=== PATIENT | female | born 1970 | race Caucasian/White ===

== ENCOUNTER 2018-10-26 07:52 | Day surgery (SDC) | payer BC ==
[2018-10-22 14:45] VITALS: BMI 30.7
[2018-10-26 08:12] VITALS: RESP 16; TEMP 97.7
[2018-10-26] MEDS ORDERED: SODIUM CHLORIDE 0.9% 500 ML 500 ML IV ONE (08:16)
[2018-10-26] MEDS: BENZOCAINE SPRAY 1 CAN MUCOUS MEM ONE ×3 (09:42→10:24)
[2018-10-26] MEDS ORDERED: fentaNYL (PF) 50 MCG/ML 2 ML AMP IV ONE (10:24)
[2018-10-26] MEDS ORDERED: MIDAZOLAM (PF) 2 MG/2 ML VIAL IVP ONE ×2 (10:24→10:26)
[2018-10-26 11:50] VITALS: BP 136/80; PULSE 92
--- NOTE | 2018-10-26 12:22 | ECHOT ---
TRANSESOPHAGEAL ECHOCARDIOGRAM INDICATION: Ventricular septal defect. PROCEDURE NOTE: After obtaining informed consent, transesophageal echocardiogram was performed in left lateral position using an Omniplane probe. There was significant artifact throughout the study, which makes it a technically suboptimal study. The patient tolerated the procedure well without any obvious immediate complications. Patient received moderate conscious sedation. Total sedation time was 10 minutes. FINDINGS: 1. We did not find any evidence of ventricular septal defect. There is no evidence of color flow across the septum. 2. Aortic valve is a 3-leaflet valve appears calcified shows mild to moderate aortic regurgitation. It is possible it is the aortic regurgitant jet that was interpreted as VSD jet. 3. Mitral valve is anatomically normal. There is no evidence of mitral regurgitation. 4. There is mild tricuspid regurgitation. 5. Aorta shows mild atherosclerotic changes. 6. Left ventricular size and systolic function are normal. CONCLUSIONS: Technically suboptimal study. No evidence of ventricular septal defect. Mild-to- moderate aortic regurgitation. After the initial MOUNIKA, I obtained transthoracic images. I do not see any evidence of left to right shunt with agitated saline contrast study and we do not see any abnormal color flow across the interventricular septum. MMODL / IJN: [id number] /
== END 2018-10-26 12:12 | disposition home or self-care (01) ==
LOC: CATHCVL 07:52
PROVIDERS: ATTEND Internal Medicine Cardiovascular Disease
DX: I08.2 Rheumatic disorders of both aortic and tricuspid valves (principal); Q21.0 Ventricular septal defect; E78.2 Mixed hyperlipidemia; Z82.49 Family history of ischemic heart disease and other diseases of the circulatory system; I65.23 Occlusion and stenosis of bilateral carotid arteries; Z85.71 Personal history of Hodgkin lymphoma; Z92.3 Personal history of irradiation; Z94.81 Bone marrow transplant status; Z79.82 Long term (current) use of aspirin; Z79.890 Hormone replacement therapy; Z79.899 Other long term (current) drug therapy; Z88.2 Allergy status to sulfonamides
CPT/HCPCS: 93312; 93320; 93325; J3010; J2250

== ENCOUNTER → 2021-11-09 | Outpatient (CLI) | payer BC ==
[2021-11-09 11:13] LABS: Basophils # (A) 0.02 X 10*3/uL (0.00-0.10); Basophils % (A) 0.5 %; Eosinophils % (A) 2.4 %; HCT 38.2 % (37.2-46.3); HGB 12.1 g/dL (12.0-15.0); Immature Grans, Automated 0.2 %; Lymphocytes % (A) 48.5 %; MCHC 31.7 g/dL (32.0-37.0); MCV 101.1 fL (80.0-97.0); Mean Platelet Volume 8.7 fL (9.5-12.2); Monocytes # (A) 0.34 X 10*3/uL (0.20-1.00); Monocytes % (A) 8.3 %; NRBC Per 100 WBC 0 /100 WBCS (0.0-0.0); Neutrophils # (A) 1.65 X 10*3/uL (1.80-7.70); Neutrophils % (A) 40.1 %; Platelet Count 258 X 10*3/uL (140-440); RBC 3.78 X 10*6/uL (4.10-5.20); RDW 13.1 % (11.5-14.5); WBC 4.12 X 10*3/uL (4.50-10.00)
[2021-11-09 12:23] LABS: Creatine Kinase 90 U/L (26-186)
[2021-11-09 12:29] LABS: ALT 24 U/L (8-44); AST 21 U/L (13-35); African American GFR (CKD) 85.2 (60.0-200.0); Albumin 3.9 g/dL (3.8-4.9); Albumin/Globulin Ratio 1.44 (1.60-3.17); Alkaline Phosphatase 62 U/L (41-126); BUN/Creat Ratio 29.33 Ratio (12.00-20.00); Blood Urea Nitrogen 26.4 mg/dL (9.0-27.0); Calcium 9.4 mg/dL (8.7-10.3); Carbon Dioxide 24.6 mmol/L (20.0-27.5); Chloride 107 mmol/L (96-109); Chol/HDL Ratio 2.88 Ratio; Globulin 2.7 g/dL (1.6-3.3); Glucose 94 mg/dL (70-110); LDL Cholesterol,Calculated 91.4 mg/dL (0.0-131.0); Non-African American GFR(CKD) 73.5 (60.0-200.0); Potassium 4.8 mmol/L (3.5-5.5); Sodium 143 mmol/L (135-145); Total Bilirubin <0.15 mg/dL (0.30-1.20); Total Protein 6.6 g/dL (6.2-8.2); VLDL Calculation 12.34 mg/dL (5.00-40.00)
== END | disposition home or self-care (01) ==
LOC: LABWHC1 07:10
PROVIDERS: ATTEND Family Medicine
DX: Z00.00 Encounter for general adult medical examination without abnormal findings (principal); E78.5 Hyperlipidemia, unspecified; E03.9 Hypothyroidism, unspecified
CPT/HCPCS: 36415; 80053; 80061; 82550; 83036; 84439; 84443; 84481; 85025

== ENCOUNTER 2022-03-05 08:54 | Day surgery (SDC) | payer BC ==
[2022-03-01 10:46] VITALS: BMI 25.7
[~2022-03-05 08:54] MED LIST: LACTATED RINGERS 1,000 ML IV SCH
[2022-03-05 09:32] VITALS: TEMP 97.6
[2022-03-05] MEDS ORDERED: ONDANSETRON 4 MG/2 ML VIAL ONE (09:56)
[2022-03-05] MEDS ORDERED: PROPOFOL 10 MG/ML 20 ML VIAL IV ONE (09:56)
--- NOTE | 2022-03-05 09:57 | P.GSHP ---
History of Present Illness H&P Date: 03/05/22 Chief Complaint: Colon cancer screening 52-year-old female here today for colonoscopy. Last colonoscopy 20 years ago. No bowel complaints. Family history of colon cancer in her grandmother. Past Medical History Past Medical History: Cancer, GERD/Reflux, Hyperlipidemia, Thyroid Disorder Additional Past Medical History / Comment(s): Heart murmur. Hx Hodgkins lymphoma. History of Any Multi-Drug Resistant Organisms: None Reported Past Surgical History: Appendectomy, Breast Surgery, Cholecystectomy Additional Past Surgical History / Comment(s): Lymph node removed from under left arm. breast reduction. 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 Past Anesthesia/Blood Transfusion Reactions: Motion Sickness, Postoperative Nausea & Vomiting (PONV) Past Psychological History: No Psychological Hx Reported Smoking Status: Never smoker Past Alcohol Use History: None Reported Past Drug Use History: None Reported - Past Family History Mother Family Medical History: No Reported History Medications and Allergies Home Medications Medication Instructions Recorded Confirmed Type Levothyroxine Sodium [Synthroid] 75 mcg PO DAILY 10/22/18 03/05/22 History Omeprazole 20 mg PO DAILY 10/22/18 03/05/22 History Progesterone, Micronized 200 mg PO DAILY 10/22/18 03/05/22 History [Progesterone] Simvastatin 40 mg PO DAILY 10/22/18 03/05/22 History Estrogen,Le/Me-Testosterone 1 tab PO DAILY 03/01/22 03/05/22 History [Estrogen-Methyltestos F.s. Tab] Allergies Allergy/AdvReac Type Severity Reaction Status Date / Time cefprozil [From Cefzil] Allergy Rash/Hives Verified 03/05/22 09:14 sulfamethoxazole Allergy Rash/Hives Verified 03/05/22 09:14 [From Bactrim] trimethoprim [From Bactrim] Allergy Rash/Hives Verified 03/05/22 09:14 Surgical - Exam Vital Signs Temp Pulse Resp BP Pulse Ox 97.6 F 91 16 155/78 99 03/05/22 09:31 03/05/22 09:31 03/05/22 09:31 03/05/22 09:31 03/05/22 09:31 Physical exam: General: Well-developed, well-nourished HEENT: Normocephalic, sclerae nonicteric Abdomen: Nontender, nondistended Extremities: No edema Neuro: Alert and oriented Assessment and Plan (1) Colon cancer screening Narrative/Plan: Will proceed with colonoscopy at this time Current Visit: Yes Status: Acute Code(s): Z12.11 - ENCOUNTER FOR SCREENING FOR MALIGNANT NEOPLASM OF COLON SNOMED Code(s): 372574791
--- NOTE | 2022-03-05 10:15 | P.PCN ---
Date of Procedure: 03/05/22 Procedure(s) Performed: PREOPERATIVE DIAGNOSIS: Colon cancer screening POSTOPERATIVE DIAGNOSIS: Colon polyps, diverticulosis PROCEDURE: Colonoscopy with snare polypectomy ANESTHESIA: MAC SURGEON: Ildefonso Rosales M.D. SPECIMENS: Polyps ENDOSCOPIC PROCEDURE: The patient was placed on the endoscopy table in the left decubitus position. The Olympus colonoscope was inserted into the anus and passed under direct visualization to the base of the cecum. The appendiceal orifice was visualized. From that point the scope was slowly withdrawn inspecting all surfaces carefully. There was a small sessile polyp on the ileocecal valve itself that was removed snare with cautery technique. In the mid ascending colon another small polyp was seen and removed in a similar fashion. These were sent together. The remainder of the ascending transverse and descending colon appeared normal. In the sigmoid colon there was a pedunculated polyp measuring 1 cm at 30 cm. This was removed using the snare with cautery technique as a single piece. The remainder of the sigmoid and rectum was normal. There was mild diverticulosis seen. Digital rectal examination was normal. The patient was taken to the recovery room in stable condition per anesthesia guidelines. RECOMMENDATIONS: Await biopsy results. Resume diet. Follow-up colonoscopy 3-5 years.
[2022-03-05 10:41] VITALS: BP 138/71; PULSE 82; RESP 16
== END 2022-03-05 11:04 | disposition home or self-care (01) ==
LOC: ORWHC2ENDO 08:54
PROVIDERS: ATTEND Surgery
DX: Z12.11 Encounter for screening for malignant neoplasm of colon (principal); D12.2 Benign neoplasm of ascending colon; D12.0 Benign neoplasm of cecum; D12.5 Benign neoplasm of sigmoid colon; K57.30 Diverticulosis of large intestine without perforation or abscess without bleeding; K21.9 Gastro-esophageal reflux disease without esophagitis; E78.5 Hyperlipidemia, unspecified; R01.1 Cardiac murmur, unspecified; E07.9 Disorder of thyroid, unspecified; Z88.2 Allergy status to sulfonamides; Z88.6 Allergy status to analgesic agent; Z88.8 Allergy status to other drugs, medicaments and biological substances; Z79.899 Other long term (current) drug therapy; Z79.890 Hormone replacement therapy; Z85.71 Personal history of Hodgkin lymphoma; Z90.49 Acquired absence of other specified parts of digestive tract; Z88.1 Allergy status to other antibiotic agents; Z80.0 Family history of malignant neoplasm of digestive organs
CPT/HCPCS: 88305; 45385; J2405; J2704

== ENCOUNTER → 2022-06-04 | Outpatient (CLI) | payer BC ==
--- NOTE | 2022-06-04 15:44 | US ---
EXAMINATION TYPE: US carotid duplex BILAT DATE OF EXAM: 06/04/2022 COMPARISON: NONE CLINICAL HISTORY: Z92.3 PERSONAL HX OF IRRADIATOIN. Pt states vertigo TECHNIQUE: Carotid duplex ultrasound examination. Indirect Doppler criteria was utilized. FINDINGS: EXAM MEASUREMENTS: RIGHT: Peak Systolic Velocity (PSV) cm/sec ----- Right CCA: 112 ----- Right ICA: 106 ----- Right ECA: 119 ICA/CCA ratio: 0.9 RIGHT: End Diastole cm/sec ----- Right CCA: 31.3 ----- Right ICA: 31.4 ----- Right ECA: 12.3 LEFT: Peak Systolic Velocity (PSV) cm/sec ----- Left CCA: 98.1 ----- Left ICA: 96.5 ----- Left ECA: 108 ICA/CCA ratio: 1.0 LEFT: End Diastole cm/sec ----- Left CCA: 32.2 ----- Left ICA: 41.44 ----- Left ECA: 15.3 VERTEBRALS (direction of flow): Right Vertebral: Antegrade Left Vertebral: Antegrade Rhythm: Normal MOUNTER AUTOMATIC NOTES: No significant stenosis seen Incidental finding left thyroid nodule= 1.5 cm IMPRESSION: 1. Atheromatous plaquing without significant flow-limiting stenosis. 2. 1.5 cm nodule left lobe thyroid. Additional workup with dedicated thyroid ultrasound is recommende d. Criteria for Assigning % of Stenosis / Diameter reduction (Estimation based on the indirect measurements of the internal carotid artery velocities (ICA PSV). 1. Normal (no stenosis)=ICA PSV < 125 cm/s: ratio < 2.0: ICA EDV<40 cm/s. 2. Less than 50% stenosis=ICA PSV < 125 cm/s: ratio < 2.0: ICA EDV<40 cm/s. 3. 50 to 69% stenosis=ICA PSV of 125 to 230 cm/s: ration 2.0 ? 4.0: ICA EDV 40-100 cm/s. 4. Greater than 70% stenosis to near occlusion= ICA PSV > 230 cm/s: ratio > 4.0: ICA EDV > 100 cm/s. 5. Near occlusion= ICA PSV velocities may be low or undetectable: variable ratio and ICA EDV. 6. Total occlusion=unable to detect flow.
== END | disposition home or self-care (01) ==
LOC: RADUSWWP 15:10
PROVIDERS: ATTEND Family Medicine
DX: E04.1 Nontoxic single thyroid nodule (principal); Z92.3 Personal history of irradiation
CPT/HCPCS: 93880

== ENCOUNTER → 2022-06-28 | Outpatient (CLI) | payer BC ==
--- NOTE | 2022-06-28 15:30 | US ---
EXAMINATION TYPE: US thyroid st tissue head/neck DATE OF EXAM: 06/28/2022 COMPARISON: NONE CLINICAL HISTORY: E04.1 thyroid nodule. GLAND SIZE: Right Lobe: 2.1 x 0.88 x 0.96 cm Overall Parenchyma: heterogenous Left Lobe: 2.6 x 0.93 x 1.2 cm Overall Parenchyma: heterogeneous Isthmus Thickness: 0.16 cm NODULES RIGHT: # of nodules measured on right: 1 1. 1.0 X 0.7 x 0.6 cm, upper fall, mostly cystic, hypoechoic nodule, which is wider than it is tall , with ill-defined margins, without echogenic foci. LEFT: # of nodules measured on left: 1 1. 1.5 X 0.9 x 1.1 cm, mid pole, mixed cystic and solid, mostly solid nodule which is wider than ta ll, with smooth margins, without echogenic foci. ISTHMUS: # of nodules measured in the isthmus: 0 Bilateral neck scanned, no evidence of lymphadenopathy. IMPRESSION: 1. No thyroid enlargement 2. Single bilateral thyroid nodules 3. Recommend FNA of left thyroid nodule 2017 ACR TI-RADS LEVEL: 4 *Highest TI-RADS level nodule reported
== END | disposition home or self-care (01) ==
LOC: RADUSWWP 14:47
PROVIDERS: ATTEND Family Medicine
DX: E04.2 Nontoxic multinodular goiter (principal)
CPT/HCPCS: 76536

== ENCOUNTER → 2024-10-08 | Outpatient (CLI) | payer BC ==
--- NOTE | 2024-10-08 13:45 | US ---
EXAMINATION TYPE: US thyroid st tissue head/neck DATE OF EXAM: 10/08/2024 COMPARISON: US June 28, 2022 CLINICAL INDICATION: Female, 54 years old with history of E03.9 HYPOTHYROIDISM; Levothyroxine. Hx FNA TECHNIQUE: Grayscale and color Doppler imaging of the thyroid gland. FINDINGS: GLAND SIZE: Right Lobe: 2.6 x 0.8 x 1.0 cm Overall Parenchyma: heterogeneous Left Lobe: 2.9 x 1.1 x 1.0 cm Overall Parenchyma: heterogeneous Isthmus Thickness: 0.1 cm NODULES RIGHT: # of nodules measured on right: 1 1. 1.1 X 0.9 x 1.0 cm, upper mid, solid or almost completely solid, hypoechoic nodule, which is wendy ler than wide, with smooth margins, without echogenic foci. TR4 Prior size: 1.0 x 0.6 x 0.7 cm Area measured as one nodule as measured on last exam. Possibly 2 nodules adjacent measuring smalle r. LEFT: # of nodules measured on left: 2 1. 1.3 X 1.1 x 0.9 cm, mid mid, solid or almost completely solid, very hypoechoic nodule, which is wider than tall, with smooth margins, without echogenic foci. TR4 Prior size: 1.5 x 1.1 x 0.9 cm 2. 0.4 X 0.4 x 0.3 cm, lower mid, cystic or almost completely cystic, anechoic nodule, which is wi christi than tall, with smooth margins, with echogenic foci. TR3 Prior size: Not seen on prior ISTHMUS: # of nodules measured in the isthmus: 0 Bilateral neck scanned, no evidence of lymphadenopathy. Persistent heterogeneous small sized thyroid. Stable bilateral nodules. The dominant left-sided nodul e has been sampled in the past. IMPRESSION: As above. Highest TI-RADS level nodule reported: 2017 ACR TI-RADS LEVEL: TI-RADS 4 - Moderately Suspicious: Follow if > 1 cm, FNA if > 1.5 cm TI-RADS assessment score and recommendation for follow-up based on appropriate scoring and treatment protocols. TR3: If nodule size is ? 2.5 cm, FNA is recommended. If nodule size is ? 1.5 cm, follow-up imaging at 1, 3, and 5 years is recommended. TR4: If nodule size is ? 1.5 cm, FNA is recommended. If nodule size is ? 1.0 cm, follow-up imaging at 1, 2, 3, and 5 years is recommended. TR5: If nodule size is ? 1.0 cm, FNA is recommended. If nodule size is ? 0.5 cm, annual follow-up for up to 5 years is recommended. [email or web address] [facility], , 10/08/2024 1:42 PM
== END | disposition home or self-care (01) ==
LOC: RADUSWWP 12:59
PROVIDERS: ATTEND Internal Medicine Hematology & Oncology
DX: E03.9 Hypothyroidism, unspecified (principal); C81.98 Hodgkin lymphoma, unspecified, lymph nodes of multiple sites; E78.5 Hyperlipidemia, unspecified; E04.2 Nontoxic multinodular goiter
CPT/HCPCS: 76536

== ENCOUNTER → 2024-10-08 | Outpatient (CLI) | payer BC ==
--- NOTE | 2024-10-08 13:41 | CT ---
EXAMINATION TYPE: CT chest wo con CT DLP: 164.20 mGycm, Automated exposure control for dose reduction was used. DATE OF EXAM: 10/08/2024 1:09 PM COMPARISON: None CLINICAL INDICATION:Female, 54 years old with history of C50.811 MALIGNANT NEOPLASM OF OVRLP SITES OF RIGHT; PHH, R/O MALIGNANT NEOPLASM OF RIGHT BREAST TECHNIQUE: Multiple axial images were obtained through the chest without IV contrast. Lack of IV or o ral contrast limits evaluation of solid and hollow organ viscera. . Coronal and sagittal reformats re viewed. FINDINGS: LUNGS/ PLEURA: No pleural effusion, pneumothorax, focal consolidation. Biapical pleural-parenchymal s carring. Posterior superior segment right lower lobe subpleural focal atelectasis. No suspicious pulm onary nodule or mass. AIRWAY: Patent and unremarkable.. HEART: Size within normal limits.Trace anterior pericardial effusion. Moderate coronary arterial calc ifications. Mild mitral annulus calcifications. Mild coronary artery calcifications present. MEDIASTINUM: No gross evidence of adenopathy. VASCULATURE: No aortic aneurysm. Mild atherosclerotic calcification of the aorta and its branches. MUSCULOSKELETAL: No acute osseous abnormalities. Heterogenous sclerotic appearance in the mid sternum . Schmorl's node involving the superior endplate of the T8 vertebral body. SOFT TISSUES/LYMPH NODES: Coarse calcification versus biopsy marker within the medial inferior right breast. Focal region of fat necrosis within the left breast. No axillary adenopathy. LOWER NECK: No significant findings. UPPER ABDOMEN: Gallbladder is surgically absent. There are 2 nonobstructive right renal calculi with largest measuring up to 4 mm. IMPRESSION: 1. No acute thoracic process within limitations of a noncontrast exam. 2. No suspicious pulmonary nodule or adenopathy within the limitations. 3. No CT evidence for suspicious breast mass however mammography/ultrasound is more sensitive. 4. Nonobstructive right renal calculi. [facility], , 10/08/2024 1:38 PM
== END | disposition home or self-care (01) ==
LOC: RADCTMAIN 12:42
PROVIDERS: ATTEND Internal Medicine Hematology & Oncology
DX: C50.811 Malignant neoplasm of overlapping sites of right female breast (principal); E78.5 Hyperlipidemia, unspecified; E03.9 Hypothyroidism, unspecified; N20.0 Calculus of kidney
CPT/HCPCS: 71250